=== PATIENT | male | born 1980 | race Caucasian/White ===

== ENCOUNTER 2016-12-26 04:20 | Emergency (ER) | payer BC ==
[2016-12-26 04:26] VITALS: BP 131/73; BMI 32.1
--- NOTE | 2016-12-26 04:33 | DR.ABDMALE ---
HPI - Time seen Time seen: 04:30 - PCP Primary Care Physician: AVIVA - Complaint Chief Complaint Doctors Comments: Patient denies trauma. Denies history of kidney stones Chief Complaint:: LOWER ABD PAIN SINCE ABOUT 0200. Self Treatment fo Chief Complaint: PEPTO BISMOL - Mode of arrival Mode of Arrival: EMS - Timing Onset of Chief Complaint: 12/26/16 PMH - PMH Past Medical History: Yes Past Medical History: Kidney Stones Past Surgical History: No - Family History History of Family Medical Conditions: No - Social History Does patient currently use any type of tobacco product: No Have you used tobacco products in the last 12 months: No Type of Tobacco Use: None Alcohol Use: None Do you use any recreational Drugs:: No Lives With: Spouse Lives Where: Home - infectious screening Have you traveled outside the country in the last 6 months?: No Isolation: Standard ROS - Review of Systems Eyes: No Symptoms Reported ENTM: No Symptoms Reported Respiratoy: No Symptoms Reported Cardiovascular: No Symptoms Reported Gastrointestinal/Abdominal: Abdominal Pain Genitourinary: No Symptoms Reported Neurological: No Symptoms Reported Musculoskeletal: No Symptoms Reported Integumentary: No Symptoms Reported Hematologic/Lymphatic: No Symptoms Reported Endocrine: No Symptoms Reported Psychiatric: No Symptoms Reported All Other Systems: Reviewed and Negative PE - Vital Signs Vital Signs: Temp Pulse Resp BP Pulse Ox 12/26/16 04:21 97.9 F 84 18 131/73 100 - General General Appearance: Alert, In No Apparent Distress - Head Head Exam: Normal Inspection, Atraumatic - Eyes Eye exam: Normal Appearance, PERRL, EOMI - ENT ENT Exam: Normal Exam - Neck Neck Exam: Normal Inspection, Full ROM - Chest Chest Inspection: Normal Inspection, Symmetric Chest Wall Rise - Respiratory Respiratory Exam: Normal Lung Sounds Bilat Respiratory Exam: Bilateral Clear to Auscultation - Cardiovascular Cardiovascular Exam: Regular Rate, Normal Rhythm - Abdominal Exam Abdominal Exam: Normal Inspection, Normal Bowel Sounds Abdominal Tenderness: RLQ, Suprapubic - Rectal Rectal Exam: Deferred - Back Back Exam: Normal Inspection - Extremeties Extremities Exam: Normal Inspection, Full ROM - Exam: Male: Deferred - Neurologic Neurological Exam: Alert, Oriented X3, CN II-XII Intact - Psychiatric Psychiatric Exam: Anxious - Skin Skin Exam: Warm, Dry, Intact ROR - Labs Reviewed Result Diagrams: 12/26/16 04:45 12/26/16 04:45 Laboratory: WBC 7.0 X10^3/uL (3.6-10.0) 12/26/16 04:45 RBC 4.97 X10^6/uL (4.7-6.0) 12/26/16 04:45 Hgb 14.9 g/dL (13.5-18.0) 12/26/16 04:45 Hct 43.6 % (42.0-54.0) 12/26/16 04:45 MCV 87.7 fL (80.0-100.0) 12/26/16 04:45 MCH 30.0 pg (27.0-34.0) 12/26/16 04:45 MCHC 34.2 g/dL (33.0-35.0) 12/26/16 04:45 RDW 14.0 % (11.6-16.5) 12/26/16 04:45 Plt Count 156 X10^3/uL (150.0-450.0) 12/26/16 04:45 MPV 8.4 fL (7.4-11.0) 12/26/16 04:45 Neut % 84.5 % (42.0-75.0) H 12/26/16 04:45 Lymph % 9.2 % (21.0-51.0) L 12/26/16 04:45 [place] % 5.4 % (0.0-13.0) 12/26/16 04:45 Eos % 0.3 % (0.9-2.9) L 12/26/16 04:45 Baso % 0.6 % (0.2-1.0) 12/26/16 04:45 Neut # 5.9 x10^3/uL (2.2-4.8) H 12/26/16 04:45 Lymph # 0.6 X10^3/uL (1.3-2.9) L 12/26/16 04:45 [place] # 0.4 x10^3/uL (0.3-0.8) 12/26/16 04:45 Eos # 0.0 x10^3/uL (0.0-0.2) 12/26/16 04:45 Baso # 0.0 X10^3/uL (0.0-0.1) 12/26/16 04:45 Absolute Nucleated RBC 0.0 /100WBC 12/26/16 04:45 Sodium 140 mmol/L (136-145) 12/26/16 04:45 Corrected Sodium 141 mmol/L (136-145) 12/26/16 04:45 Potassium 3.9 mmol/L (3.5-5.1) 12/26/16 04:45 Chloride 105 mmol/L (98-107) 12/26/16 04:45 Carbon Dioxide 25.4 mmol/L (21-32) 12/26/16 04:45 BUN 19 mg/dL (7-18) H 12/26/16 04:45 Creatinine 1.63 mg/dL (0.70-1.30) H 12/26/16 04:45 Est GFR (MDRD) Af Amer > 60 (>60) 12/26/16 04:45 Est GFR (MDRD) Non-Af 51 (>60) L 12/26/16 04:45 Glucose 143 mg/dL (65-99) H 12/26/16 04:45 Calcium 9.0 mg/dL (8.5-10.1) 12/26/16 04:45 C-Reactive Protein 1.90 mg/L (0-3.0) 12/26/16 04:45 Specimen Type Clean catch urine 12/26/16 04:45 Urine Color Yellow (YELLOW) 12/26/16 04:45 Urine Appearance Clear (CLEAR) 12/26/16 04:45 Urine pH 5.0 (5.0 - 8.0) 12/26/16 04:45 Ur Specific War 1.025 (1.000-1.030) 12/26/16 04:45 Urine Protein 1+ (NEGATIVE) 12/26/16 04:45 Urine Glucose (UA) 1+ (NEGATIVE) 12/26/16 04:45 Urine Ketones 2+ (NEGATIVE) 12/26/16 04:45 Urine Occult Blood 5+ (NEGATIVE) 12/26/16 04:45 Urine Nitrite Negative (NEGATIVE) 12/26/16 04:45 Urine Bilirubin Negative (NEGATIVE) 12/26/16 04:45 Urine Urobilinogen Normal (NORMAL) 12/26/16 04:45 Ur Leukocyte Esterase Negative (NEGATIVE) 12/26/16 04:45 Urine RBC 20-25 /HPF (NEGATIVE) 12/26/16 04:45 Urine WBC 0-3 /HPF (NEGATIVE) 12/26/16 04:45 Ur Squamous Epith Cells Rare /HPF (NEGATIVE) 12/26/16 04:45 Ur Renal Epithelial Cell Few /HPF (NEGATIVE) 12/26/16 04:45 Urine Bacteria 1+ /HPF (NEGATIVE) 12/26/16 04:45 Ur Culture Indicated? No/not indicated 12/26/16 04:45 - XRAY XRAY Interpreted by: Radiologist (CT Abd/Pelv w/o: There bilateral nonobstructing renal calculi. In the pelvis to the right of midline there iws a lmm stone which lies along the path of the distal right ureter. There is mild right hydronephrosis and hydroureter. There is no evidence of biliary ductal dilatation....Impression: There is mild right hydronephrosis and hydroureter. These changes may be secondary to a recently passed stone. A 1mm stone identified in the right hemipelvis does not appear to lie within the ureter.) - Diagnosis Discharge Problem: Hydroureter Hydronephrosis Qualifiers: Hydronephrosis type: unspecified Qualified Code(s): N13.30 - Unspecified hydronephrosis - Discharge Plan Condition: Stable - Follow ups/Referrals Follow ups/Referrals: NFD,None [Primary Care Provider] - 3 days - Instructions
[2016-12-26] MEDS ORDERED: MORPHINE SULFATE INJ 4 MG IVP ONE (04:35)
[2016-12-26] MEDS ORDERED: NS 1000 ML 1,000 ML ONE (04:42)
[2016-12-26] MEDS ORDERED: MORPHINE SULFATE INJ 4 MG ONE (04:43)
[2016-12-26 04:59] LABS: BASOPHILS % (AUTO) 0.6 % (0.2-1.0); BILIRUBIN,URINE NEGATIVE (NEGATIVE); BLOOD/HEMOGLOBIN,URINE 5+ (NEGATIVE); EOSINOPHILS % (AUTO) 0.3 % (0.9-2.9); GLUCOSE, URINE 1+ (NEGATIVE); HEMATOCRIT 43.6 % (42.0-54.0); HEMOGLOBIN 14.9 g/dL (13.5-18.0); KETONES,URINE 2+ (NEGATIVE); LEUKOCYTE ESTERASE ,URINE NEGATIVE (NEGATIVE); LYMPHOCYTES # (AUTO) 0.6 X10^3/uL (1.3-2.9); LYMPHOCYTES % (AUTO) 9.2 % (21.0-51.0); MEAN CORPUSCULAR HGB CONC 34.2 g/dL (33.0-35.0); MEAN CORPUSCULAR VOLUME 87.7 fL (80.0-100.0); MEAN PLATELET VOLUME 8.4 fL (7.4-11.0); MONOCYTES # (AUTO) 0.4 x10^3/uL (0.3-0.8); MONOCYTES % (AUTO) 5.4 % (0.0-13.0); NEUTROPHILS # (AUTO) 5.9 x10^3/uL (2.2-4.8); NEUTROPHILS % (AUTO) 84.5 % (42.0-75.0); NITRITES,URINE NEGATIVE (NEGATIVE); PLATELET COUNT 156 X10^3/uL (150.0-450.0); PROTEIN,URINE 1+ (NEGATIVE); RED BLOOD COUNT 4.97 X10^6/uL (4.7-6.0); UROBILINOGEN,URINE NORMAL (NORMAL)
[2016-12-26] MEDS ORDERED: NS 1000 ML 1,000 ML IV SCH (05:00)
[2016-12-26 05:02] LABS: BLOOD UREA NITROGEN 19 mg/dL (7-18); CARBON DIOXIDE 25.4 mmol/L (21-32); CHLORIDE 105 mmol/L (98-107); COR NA(FOR HYPERGLY) 141 mmol/L (136-145); CREATININE 1.63 mg/dL (0.70-1.30); SODIUM 140 mmol/L (136-145); eGFR BLACK RACES > 60 (>60); eGFR NON BLACK RACES 51 (>60)
[2016-12-26 05:06] LABS: APPEARANCE,URINE CLEAR (CLEAR); COLOR,URINE YELLOW (YELLOW); RBC,URINE 20-25 /HPF (NEGATIVE)
[2016-12-26 05:07] LABS: BACTERIA,URINE 1+ /HPF (NEGATIVE); RENAL EPITHELIAL CELLS,URINE FEW /HPF (NEGATIVE); SQUAMOUS EPITHELIAL CELL,UR RARE /HPF (NEGATIVE)
[2016-12-26] MEDS ORDERED: TORADOL 30 MG VIAL IVP ONE (05:14)
[2016-12-26] MEDS ORDERED: TORADOL 30 MG VIAL ONE (05:15)
--- NOTE | 2016-12-26 06:03 | CT ---
EXAM: CT ABDOMEN AND PELVIS WITHOUT CONTRAST INDICATION: Low pelvic pain COMPARISION: No priors available for comparison TECHNIQUE: Axial CT examination of the abdomen and pelvis was performed without intravenous contrast. Coronal an d sagittal reconstructions were created using the axial data. FINDINGS: The lung bases are clear. The liver, spleen, pancreas, adrenal glands, and gallbladder are normal. Th ere are bilateral nonobstructing renal calculi. In the pelvis to the right of midline there is a 1 mm stone which lies along the path of the distal right ureter. There is mild right hydronephrosis and h ydroureter. There is no evidence of biliary ductal dilatation. The aorta and inferior vena cava are normal in marion iber. The bowel loops are nonobstructed. No abnormal mass, lymphadenopathy, or fluid collection. Urinary bladder is normal. The appendix is normal. The regional skeleton is intact. IMPRESSION: There is mild right hydronephrosis and hydroureter. These changes may be secondary to a recently pass ed stone. A 1 mm stone identified in the right hemipelvis does not appear to lie within the ureter. Reported By:
[2016-12-26] MEDS ORDERED: DILAUDID INJ IM ONE (06:18)
[2016-12-26] MEDS ORDERED: DILAUDID INJ ONE (06:19)
[2016-12-26] MEDS ORDERED: DILAUDID INJ IVP ONE (06:19)
== END 2016-12-26 07:22 | disposition home or self-care (01) ==
LOC: ER 04:20
DX: N13.4 Hydroureter (principal); N13.30 Unspecified hydronephrosis; R10.31 Right lower quadrant pain
CPT/HCPCS: 36415; 74176; 80048; 81001; 85025; 86140; 96365; 96367; 96374; 96375; 99283; J1885; J2270

== ENCOUNTER 2021-04-30 19:18 | Observation (INO) ==
[2021-04-30 20:12] LABS: BASOPHILS % (AUTO) 0.4 % (0.2-1.0); EOSINOPHILS % (AUTO) 0.1 % (0.9-2.9); HEMATOCRIT 41.4 % (42.0-54.0); HEMOGLOBIN 14.3 g/dL (13.5-18.0); LYMPHOCYTES # (AUTO) 0.6 X10^3/uL (1.3-2.9); LYMPHOCYTES % (AUTO) 7.7 % (21.0-51.0); MEAN CORPUSCULAR HEMOGLOBIN 30.1 pg (27.0-34.0); MEAN CORPUSCULAR HGB CONC 34.6 g/dL (33.0-35.0); MEAN PLATELET VOLUME 7.7 fL (7.4-11.0); MONOCYTES # (AUTO) 0.5 x10^3/uL (0.3-0.8); MONOCYTES % (AUTO) 7.1 % (0.0-13.0); NEUTROPHILS # (AUTO) 6.2 x10^3/uL (2.2-4.8); NEUTROPHILS % (AUTO) 84.7 % (42.0-75.0); RED BLOOD COUNT 4.75 X10^6/uL (4.7-6.0); RED CELL DISTRIBUTION WIDTH 13.7 % (11.6-16.5); WHITE BLOOD COUNT 7.3 X10^3/uL (3.6-10.0)
[2021-04-30 20:13] LABS: BLOOD UREA NITROGEN 17 mg/dL (7-18); CALCIUM 9.3 mg/dL (8.5-10.1); CHLORIDE 103 mmol/L (98-107); COR NA(FOR HYPERGLY) 140 mmol/L (136-145); CREATININE 1.35 mg/dL (0.70-1.30); SODIUM 139 mmol/L (136-145); eGFR NON BLACK RACES > 60 (>60)
--- NOTE | 2021-04-30 20:23 | DR.CP ---
HPI Time Seen Time Seen by Provider: 04/30/21 19:35 PCP Primary Care Physician: LUCIANA CHICAS HPI Comment HPI Comment: A 41 y/o male presenting via EMS with c/o chest pain in the chest since about 1400 hrs. today. He thought It was indigestion as he just done lunch. No relief was offered by maalox. He can't adequately characterize the pain. There was was no radiation, dyspnea or diaphoresi. He howeverhad nausea. The pain intensitfied during anabaptist service this evening. He had a similar experience 1 year ago and had a negative stress test with Dr. Mahmood ([place]). He had received 4 tabs. of 81 mg ASA, 4 mg of Zofran and 5 mg of MSO4 administered by the EMS on the scene. At its peak, he rated the pain as an 8/10 in intensity. Now it is a 2/10. This pain presented 1 week ago but dissipitated shortly. Complaint Chief Complaint:: PT IN ED VIA STRETCHER PER [facility] WITH C/O CHEST P AIN SINCE ABOUT 3PM. PT STATES ITS MIDSTERNAL RADIATING TO THE LEFT. PT GIVEN ASPIRIN 81MG X 4, ZOFRAN 4MG IV AND MORPHINE 5MG IV PER EMS. Self Treatment fo Chief Complaint: MAALOX COVID-19 Coronavirus risk:travel/contact w/high risk person: No Has patient experienced Coronavirus symptoms: No Reviewed Nurses Notes Review: Yes Source History Provided: Patient Mode of Arrival Mode of Arrival: Stretcher Timing Onset of Chief Complaint: 04/30/21 Came on: Gradually Duration Duration: Constant How lon Duration: Hours Location Location of Chest Pain: Chest Chest Pain Radiation Location: None Context Onset: At rest Cardiac Risk Factors: None PE Risk Factors: None History of: Similar pain in the past Prehospital Care: IV, SL Nitro, ASA and Other (Morrphine) Quality Quality: Other (unable to describe) Severity Severity: Extreme Modifying Factors Worsens: Nothing Associated Signs and Symptoms Associated Signs and Symptoms: Nausea/Vomiting PMH PMH Past Medical History: Yes Past Medical History: Kidney Stones Past Surgical History: No Surgical History: No History Family History History of Family Medical Conditions: Yes Family Medical History: Cancer Social History Does patient currently use any type of tobacco product: No Have you used tobacco products in the last 12 months: No Type of Tobacco Use: None Does any household member use tobacco: No Alcohol Use: None Do you use any recreational Drugs:: No Lives With: Spouse Lives Where: Home Travel Risk Coronavirus risk:travel/contact w/high risk person: No Has patient experienced Coronavirus symptoms: No Infectious screening In the last 2 months have you had wt loss of >10#?: NO Have you had fever, night sweats or hemotysis?: No Have you traveled outside the country in the last 6 months?: No Isolation: Standard ROS Review of Systems Constitutional: No Symptoms Reported Eyes: No Symptoms Reported ENTM: No Symptoms Reported Respiratoy: No Symptoms Reported Cardiovascular: Chest Pain Gastrointestinal/Abdominal: Nausea Genitourinary: No Symptoms Reported Neurological: No Symptoms Reported Musculoskeletal: No Symptoms Reported Integumentary: No Symptoms Reported Hematologic/Lymphatic: No Symptoms Reported Endocrine: No Symptoms Reported Psychiatric: No Symptoms Reported PE Vitals Vitals: Temperature 98.4 F Pulse Rate 99 Respiratory Rate 17 Blood Pressure [Left Arm] 134/84 Blood Pressure 110/56 O2 Sat by Pulse Oximetry 95 General Limitations: No Limitations General Appearance: Alert and In No Apparent Distress Head Head Exam: Normal Inspection, Atraumatic and Normocephalic Eyes Eye exam: Normal Appearance and EOMI ENT ENT Exam: Normal Exam, Normal Oropharynx, Normal External Ear Exam and Mucous Membranes Moist Chest Chest Inspection: Normal Inspection and Symmetric Chest Wall Rise Respiratory Respiratory Exam: Normal Lung Sounds Bilat Cardiovascular Cardiovascular Exam: Regular Rate, Normal Rhythm, Normal Heart Sounds, +S1 and +S2 Abdominal Exam Abdominal Exam: Normal Inspection, Normal Bowel Sounds and Soft Extremities Extremities Exam: Normal Inspection and Full ROM Back Back Exam: Normal Inspection and Full ROM Neurologic Neurological Exam: Alert and Oriented X3 Psychiatric Psychiatric Exam: Normal Affect and Normal Mood Skin Skin Exam: Intact COURSE Reevaluation 1st: Improved 2nd: Resolved Consultation Consultation Comments: I spoke with on-call provider (Dr. Sandhu) about this pt's. presentation and diagnostic findings. Dr. Sandhu agreed to have the pt. admitted in-house Education/Counseling Education/Counseling: Patient, Education and Counseling Educated On: Treatment, Diagnosis, Prognosis and Needs for Follow Up ROR Labs Reviewed Result Diagrams: 04/30/21 19:49 04/30/21 19:49 Laboratory: WBC 7.3 X10^3/uL (3.6-10.0) 04/30/21 19:49 RBC 4.75 X10^6/uL (4.7-6.0) 04/30/21 19:49 Hgb 14.3 g/dL (13.5-18.0) 04/30/21 19:49 Hct 41.4 % (42.0-54.0) L 04/30/21 19:49 MCV 87.0 fL (80.0-100.0) 04/30/21 19:49 MCH 30.1 pg (27.0-34.0) 04/30/21 19:49 MCHC 34.6 g/dL (33.0-35.0) 04/30/21 19:49 RDW 13.7 % (11.6-16.5) 04/30/21 19:49 Plt Count 177 X10^3/uL (150.0-450.0) 04/30/21 19:49 MPV 7.7 fL (7.4-11.0) 04/30/21 19:49 Neut % (Auto) 84.7 % (42.0-75.0) H 04/30/21 19:49 Lymph % (Auto) 7.7 % (21.0-51.0) L 04/30/21 19:49 [place] % (Auto) 7.1 % (0.0-13.0) 04/30/21 19:49 Eos % (Auto) 0.1 % (0.9-2.9) L 04/30/21 19:49 Baso % (Auto) 0.4 % (0.2-1.0) 04/30/21 19:49 Neut # (Auto) 6.2 x10^3/uL (2.2-4.8) H 04/30/21 19:49 Lymph # (Auto) 0.6 X10^3/uL (1.3-2.9) L 04/30/21 19:49 [place] # (Auto) 0.5 x10^3/uL (0.3-0.8) 04/30/21 19:49 Eos # (Auto) 0.0 x10^3/uL (0.0-0.2) 04/30/21 19:49 Baso # (Auto) 0.0 X10^3/uL (0.0-0.1) 04/30/21 19:49 Absolute Nucleated RBC 0.8 /100WBC 04/30/21 19:49 PT 12.1 SECONDS (11.8-14.3) 04/30/21 19:49 INR Target Range - 04/30/21 19:49 INR 0.94 (0.8-1.3) 04/30/21 19:49 APTT 25.6 SECONDS (22.9-36.5) 04/30/21 19:49 PTT Comment - 04/30/21 19:49 D-Dimer 0.29 ug/ml (0.0-0.57) 04/30/21 19:49 Sodium 139 mmol/L (136-145) 04/30/21 19:49 Corrected Sodium 140 mmol/L (136-145) 04/30/21 19:49 Potassium 4.0 mmol/L (3.5-5.1) 04/30/21 19:49 Chloride 103 mmol/L (98-107) 04/30/21 19:49 Carbon Dioxide 30.0 mmol/L (21-32) 04/30/21 19:49 BUN 17 mg/dL (7-18) 04/30/21 19:49 Creatinine 1.35 mg/dL (0.70-1.30) H 04/30/21 19:49 Est GFR (MDRD) Af Amer > 60 (>60) 04/30/21 19:49 Est GFR (MDRD) Non-Af > 60 (>60) 04/30/21 19:49 Glucose 153 mg/dL (65-99) H 04/30/21 19:49 Calcium 9.3 mg/dL (8.5-10.1) 04/30/21 19:49 Corrected Calcium TNP 04/30/21 19:49 Total Bilirubin 0.70 mg/dL (0.2-1.0) 04/30/21 19:49 AST 140 Units/L (15-37) H 04/30/21 19:49 ALT 112 Units/L (12-78) H 04/30/21 19:49 Alkaline Phosphatase 104 Units/L (46-116) 04/30/21 19:49 Creatine Kinase 99 Units/L (39-308) 04/30/21 19:49 CK-MB (CK-2) < 1.0 ng/mL (0-4.0) 04/30/21 19:49 CK/CKMB % Calc 1.0 % (<4) 04/30/21 19:49 Troponin I High Sens 5.0 ng/L (4.0-60.0) 04/30/21 19:49 Total Protein 6.7 g/dL (6.4-8.2) 04/30/21 19:49 Albumin 3.4 g/dL (3.4-5.0) 04/30/21 19:49 Globulin 3.3 g/dL (2.5-4.5) 04/30/21 19:49 Albumin/Globulin Ratio 1.0 Ratio (1.1-2.1) L 04/30/21 19:49 SARS CoV-2 RNA Rapid RAIMUNDO Negative (NEGATIVE) 04/30/21 20:07 EKG Rate: 119 [place]: Normal Rhythm: ST Block: None Hypertrophy: None ST: Inf and Infarct (<= 1mm ST elevation. ) Opioid Opioid Risk Tool Age (Ketan box if 16-45): Yes History of Preadolescent Sexual Abuse: No Total: 1 Total Score Risk Category: Low Risk Copyright: [facility] predicting aberrant behaviors Diagnosis Discharge Problem: Chest pain Qualifiers: Chest pain type: unspecified Qualified Code(s): R07.9 - Chest pain, unspecified ADDITIONAL NOTES Additional Notes Additional Notes: Name: KRISTEN MCKEON CAcct#: [id number]: [id number] : 1980Sex: MLocation: ER Order Number(s): [id number](s):CHEST, 1 VIEW Ordering Physician: ALEXUS CARRANZA Primary Care: Saige Peguero Service Date: 04/30/21 Service Time: 1934 HISTORY Chest pain STUDY CHEST, 1 VIEW COMPARISON None available TECHNIQUE Chest radiographic imaging, AP portable projection, 1 image FINDINGS No cardiomegaly. No focal airspace disease. No pleural effusion. No pneumothorax. No acute osseous abnormality. IMPRESSION No imaging findings of acute cardiopulmonary disease. Electronically signed by: Manpreet Crane (Apr 30, 2021 21:23:12) Report Electronically signed: 04/30/216 CC: Alexus Carranza
[2021-04-30 20:44] LABS: ALANINE AMINOTRANSFERASE 112 Units/L (12-78); ALBUMIN 3.4 g/dL (3.4-5.0); ALKALINE PHOSPHATASE 104 Units/L (46-116); ASPARTATE AMINO TRANSFERASE 140 Units/L (15-37); CREATINE KINASE 99 Units/L (39-308); CREATINE KINASE MB < 1.0 ng/mL (0-4.0); TOTAL PROTEIN 6.7 g/dL (6.4-8.2)
--- NOTE | 2021-04-30 21:24 | RAD ---
HISTORYChest painSTUDYCHEST, 1 VIEWCOMPARISONNone availableTECHNIQUEChest radiographic imaging, AP portable projection, 1 imageFINDINGSNo cardiomegaly.No focal airspace disease.No pleural effusion.No pneumothorax.No acute osseous abnormality.IMPRESSIONNo imaging findings of acute cardiopulmonary disease.Electronically signed by: Manpreet Crane (Apr 30, 2021 21:23:12)
[2021-04-30] MEDS ORDERED: MORPHINE SULFATE INJ 2 MG INJ IVP PRN (22:41)
[2021-04-30] MEDS ORDERED: NITROSTAT SL PRN (22:41)
[2021-04-30 23:28] VITALS: BMI 32.0
[2021-04-30 23:34] LABS: CREATINE KINASE 98 Units/L (39-308); CREATINE KINASE MB < 1.0 ng/mL (0-4.0)
[2021-05-01 05:37] LABS: CHOLESTEROL 206 mg/dL (0-200); CKMB % 1.2 % (<4); CREATINE KINASE 82 Units/L (39-308); CREATINE KINASE MB < 1.0 ng/mL (0-4.0); HDL CHOLESTEROL 51 mg/dL (40-60); TRIGLYCERIDES 152 mg/dL (0-150)
[2021-05-01] MEDS ORDERED: PEPCID TAB 20 MG PO SCH (09:00)
[2021-05-01 11:44] LABS: CKMB % 1.3 % (<4); CREATINE KINASE 78 Units/L (39-308); CREATINE KINASE MB < 1.0 ng/mL (0-4.0)
[2021-05-01 12:08] VITALS: BP 115/73
[2021-05-03 09:24] LABS: HEPATITIS B SURFACE ANTIGEN Negative (Negative)
--- NOTE | 2021-05-30 14:11 | DR.H&P ---
H&P History & Physical for Day of: H&P Date: 04/30/21 Chief Complaint Chief Complaint: Chest pain Allergies Allergies Allergy/AdvReac Type Severity Reaction Status Date / Time No Known Drug Allergies Allergy Verified 02/21/19 17:54 History of Present Illness History of Present Illness: This is an 41 year-old white male who presented to [facility] ED for chest pain. He has no previous history of CAD. He started having chest pain about 1400 today where he thought it was just indigestion from lunch. He tried Maalox with no relief of his symptoms. He denies radiation of pain, dyspnea and diaphoresis. He reports nausea at this time with now relief from Maalox. He does report an incident 1 year ago of CP where later Dr. Mahmood, Cardiology did a stress test which was negative. It is noted his LFT's are elevated here in the ED as well and a hepatitis profile has been ordered. Past Medical History Past Medical History: Kidney Stones Past Surgical History Surgical History: No History Family History Family Medical History: Cancer Social History Does patient currently use any type of tobacco product: No Have you used tobacco products in the last 12 months: No Type of Tobacco Use: None Does any household member use tobacco: No Alcohol Use: None Drug Use: None Medications Home Medications: No Known Drug Allergies Allergy (Verified 02/21/19 17:54) Labs Result Diagrams: 04/30/21 19:49 04/30/21 19:49 Labs: Laboratory WBC 7.3 X10^3/uL (3.6-10.0) 04/30/21 19:49 RBC 4.75 X10^6/uL (4.7-6.0) 04/30/21 19:49 Hgb 14.3 g/dL (13.5-18.0) 04/30/21 19:49 Hct 41.4 % (42.0-54.0) L 04/30/21 19:49 MCV 87.0 fL (80.0-100.0) 04/30/21 19:49 MCH 30.1 pg (27.0-34.0) 04/30/21 19:49 MCHC 34.6 g/dL (33.0-35.0) 04/30/21 19:49 RDW 13.7 % (11.6-16.5) 04/30/21 19:49 Plt Count 177 X10^3/uL (150.0-450.0) 04/30/21 19:49 MPV 7.7 fL (7.4-11.0) 04/30/21 19:49 Neut % (Auto) 84.7 % (42.0-75.0) H 04/30/21 19:49 Lymph % (Auto) 7.7 % (21.0-51.0) L 04/30/21 19:49 [place] % (Auto) 7.1 % (0.0-13.0) 04/30/21 19:49 Eos % (Auto) 0.1 % (0.9-2.9) L 04/30/21 19:49 Baso % (Auto) 0.4 % (0.2-1.0) 04/30/21 19:49 Neut # (Auto) 6.2 x10^3/uL (2.2-4.8) H 04/30/21 19:49 Lymph # (Auto) 0.6 X10^3/uL (1.3-2.9) L 04/30/21 19:49 Power # (Auto) 0.5 x10^3/uL (0.3-0.8) 04/30/21 19:49 Eos # (Auto) 0.0 x10^3/uL (0.0-0.2) 04/30/21 19:49 Baso # (Auto) 0.0 X10^3/uL (0.0-0.1) 04/30/21 19:49 Absolute Nucleated RBC 0.8 /100WBC 04/30/21 19:49 PT 12.1 SECONDS (11.8-14.3) 04/30/21 19:49 INR Target Range - 04/30/21 19:49 INR 0.94 (0.8-1.3) 04/30/21 19:49 APTT 25.6 SECONDS (22.9-36.5) 04/30/21 19:49 PTT Comment - 04/30/21 19:49 D-Dimer 0.29 ug/ml (0.0-0.57) 04/30/21 19:49 Sodium 139 mmol/L (136-145) 04/30/21 19:49 Corrected Sodium 140 mmol/L (136-145) 04/30/21 19:49 Potassium 4.0 mmol/L (3.5-5.1) 04/30/21 19:49 Chloride 103 mmol/L (98-107) 04/30/21 19:49 Carbon Dioxide 30.0 mmol/L (21-32) 04/30/21 19:49 BUN 17 mg/dL (7-18) 04/30/21 19:49 Creatinine 1.35 mg/dL (0.70-1.30) H 04/30/21 19:49 Est GFR (MDRD) Af Amer > 60 (>60) 04/30/21 19:49 Est GFR (MDRD) Non-Af > 60 (>60) 04/30/21 19:49 Glucose 153 mg/dL (65-99) H 04/30/21 19:49 Calcium 9.3 mg/dL (8.5-10.1) 04/30/21 19:49 Corrected Calcium TNP 04/30/21 19:49 Total Bilirubin 0.70 mg/dL (0.2-1.0) 04/30/21 19:49 AST 140 Units/L (15-37) H 04/30/21 19:49 ALT 112 Units/L (12-78) H 04/30/21 19:49 Alkaline Phosphatase 104 Units/L (46-116) 04/30/21 19:49 Creatine Kinase 78 Units/L (39-308) 05/01/21 10:53 CK-MB (CK-2) < 1.0 ng/mL (0-4.0) 05/01/21 10:53 CK/CKMB % Calc 1.3 % (<4) 05/01/21 10:53 Troponin I High Sens < 4.0 ng/L (4.0-60.0) L 05/01/21 10:53 Total Protein 6.7 g/dL (6.4-8.2) 04/30/21 19:49 Albumin 3.4 g/dL (3.4-5.0) 04/30/21 19:49 Globulin 3.3 g/dL (2.5-4.5) 04/30/21 19:49 Albumin/Globulin Ratio 1.0 Ratio (1.1-2.1) L 04/30/21 19:49 Ldmpq-3-[id number] 122 mg/dL (90-200) 05/01/21 10:53 Triglycerides 152 mg/dL (0-150) H 05/01/21 04:45 Cholesterol 206 mg/dL (0-200) H 05/01/21 04:45 LDL Cholesterol, Calc 125 mg/dL (0-100) H 05/01/21 04:45 HDL Cholesterol 51 mg/dL (40-60) 05/01/21 04:45 Cholesterol/HDL Ratio 4.0 (0.0-5.0) 05/01/21 04:45 Hepatitis A IgM Ab Negative (Negative) 04/30/21 19:49 Hep Bs Antigen Negative (Negative) 04/30/21 19:49 Hep Bs Ag Confirmation TNP 04/30/21 19:49 Hep B Core IgM Ab Negative (Negative) 04/30/21 19:49 Hepatitis C Ab Index <0.02 IV 04/30/21 19:49 Hepatitis C Interp Negative (Negative) 04/30/21 19:49 Hepatitis Interpret See note 04/30/21 19:49 SARS CoV-2 RNA Rapid RAIMUNDO Negative (NEGATIVE) 04/30/21 20:07 Review of Systems Constitutional: No Symptoms Reported Eyes: No Symptoms Reported ENT: No Symptoms Reported Respiratory: No Symptoms Reported Cardiovascular: Chest Pain Gastrointestinal: Nausea Genitourinary: No Symptoms Reported Musculoskeletal: No Symptoms Reported Skin: No Symptoms Reported Neurological: No Symptoms Reported Physical Exam Vital Signs: Temperature 98.2 F Pulse Rate [Apical] 94 Pulse Rate 98 Respiratory Rate 20 Blood Pressure [Right Arm] 115/73 Blood Pressure [Left Arm] 122/67 Blood Pressure 122/67 O2 Sat by Pulse Oximetry 96 Oriented: Normal Eyes: Normal Ear: Normal Nose: Normal Throat: Normal Respiratory: Clear Throughout Cardiovascular: Normal : Normal Auscultation: Bowel Sounds: Normal Palpation: Normal Tenderness: Normal Skin: Normal Musculoskeletal: Normal Psychiatric: Normal Mood Description: Calm, Happy and Appropriate Affect: Normal Speech Pattern: Clear and Appropriate Assessment/Plan (1) Chest pain: Qualifiers: Chest pain type: unspecified Qualified Code(s): R07.9 - Chest pain, unspecified Status: Acute Plan: Check serial CE's and EKG's to r/o OK. The patient has received ASA81 mg x 4 tabs, Morphine Sulfate 5 mg and Zofran for nausea. (2) Elevated LFTs: Status: Acute Plan: Follow up with Hepatitis panel. Review H&P Reviewed: Yes Patient was examined?: Yes
--- NOTE | 2021-05-30 14:23 | PCM.DCPLAN ---
DISCHARGE SUMMARY Admission Date Date of Admission: 04/30/21 Discharge Date Discharge Date: 05/01/21 Admission Diagnoses (1) Chest pain: Status: Acute (2) Elevated LFTs: Status: Acute Discharge Diagnoses Discharge Diagnosis: 1. Chest Pain- resolved 2. Abnormal EKG's 3. Elevated LFT's Discharge Medications Discharge Medications: Prescriptions: Hospital Course Vital Signs: Temperature 98.2 F Pulse Rate [Apical] 94 Pulse Rate 98 Respiratory Rate 20 Blood Pressure [Right Arm] 115/73 Blood Pressure [Left Arm] 122/67 Blood Pressure 122/67 O2 Sat by Pulse Oximetry 96 Latest Lab Results: Laboratory Last Values WBC 7.3 X10^3/uL (3.6-10.0) 04/30/21 19:49 RBC 4.75 X10^6/uL (4.7-6.0) 04/30/21 19:49 Hgb 14.3 g/dL (13.5-18.0) 04/30/21 19:49 Hct 41.4 % (42.0-54.0) L 04/30/21 19:49 MCV 87.0 fL (80.0-100.0) 04/30/21 19:49 MCH 30.1 pg (27.0-34.0) 04/30/21 19:49 MCHC 34.6 g/dL (33.0-35.0) 04/30/21 19:49 RDW 13.7 % (11.6-16.5) 04/30/21 19:49 Plt Count 177 X10^3/uL (150.0-450.0) 04/30/21 19:49 MPV 7.7 fL (7.4-11.0) 04/30/21 19:49 Neut % (Auto) 84.7 % (42.0-75.0) H 04/30/21 19:49 Lymph % (Auto) 7.7 % (21.0-51.0) L 04/30/21 19:49 Karnes % (Auto) 7.1 % (0.0-13.0) 04/30/21 19:49 Eos % (Auto) 0.1 % (0.9-2.9) L 04/30/21 19:49 Baso % (Auto) 0.4 % (0.2-1.0) 04/30/21 19:49 Neut # (Auto) 6.2 x10^3/uL (2.2-4.8) H 04/30/21 19:49 Lymph # (Auto) 0.6 X10^3/uL (1.3-2.9) L 04/30/21 19:49 Karnes # (Auto) 0.5 x10^3/uL (0.3-0.8) 04/30/21 19:49 Eos # (Auto) 0.0 x10^3/uL (0.0-0.2) 04/30/21 19:49 Baso # (Auto) 0.0 X10^3/uL (0.0-0.1) 04/30/21 19:49 Absolute Nucleated RBC 0.8 /100WBC 04/30/21 19:49 PT 12.1 SECONDS (11.8-14.3) 04/30/21 19:49 INR Target Range - 04/30/21 19:49 INR 0.94 (0.8-1.3) 04/30/21 19:49 APTT 25.6 SECONDS (22.9-36.5) 04/30/21 19:49 PTT Comment - 04/30/21 19:49 D-Dimer 0.29 ug/ml (0.0-0.57) 04/30/21 19:49 Sodium 139 mmol/L (136-145) 04/30/21 19:49 Corrected Sodium 140 mmol/L (136-145) 04/30/21 19:49 Potassium 4.0 mmol/L (3.5-5.1) 04/30/21 19:49 Chloride 103 mmol/L (98-107) 04/30/21 19:49 Carbon Dioxide 30.0 mmol/L (21-32) 04/30/21 19:49 BUN 17 mg/dL (7-18) 04/30/21 19:49 Creatinine 1.35 mg/dL (0.70-1.30) H 04/30/21 19:49 Est GFR (MDRD) Af Amer > 60 (>60) 04/30/21 19:49 Est GFR (MDRD) Non-Af > 60 (>60) 04/30/21 19:49 Glucose 153 mg/dL (65-99) H 04/30/21 19:49 Calcium 9.3 mg/dL (8.5-10.1) 04/30/21 19:49 Corrected Calcium TNP 04/30/21 19:49 Total Bilirubin 0.70 mg/dL (0.2-1.0) 04/30/21 19:49 AST 140 Units/L (15-37) H 04/30/21 19:49 ALT 112 Units/L (12-78) H 04/30/21 19:49 Alkaline Phosphatase 104 Units/L (46-116) 04/30/21 19:49 Creatine Kinase 78 Units/L (39-308) 05/01/21 10:53 CK-MB (CK-2) < 1.0 ng/mL (0-4.0) 05/01/21 10:53 CK/CKMB % Calc 1.3 % (<4) 05/01/21 10:53 Troponin I High Sens < 4.0 ng/L (4.0-60.0) L 05/01/21 10:53 Total Protein 6.7 g/dL (6.4-8.2) 04/30/21 19:49 Albumin 3.4 g/dL (3.4-5.0) 04/30/21 19:49 Globulin 3.3 g/dL (2.5-4.5) 04/30/21 19:49 Albumin/Globulin Ratio 1.0 Ratio (1.1-2.1) L 04/30/21 19:49 Gpsls-[id number] 122 mg/dL (90-200) 05/01/21 10:53 Triglycerides 152 mg/dL (0-150) H 05/01/21 04:45 Cholesterol 206 mg/dL (0-200) H 05/01/21 04:45 LDL Cholesterol, Calc 125 mg/dL (0-100) H 05/01/21 04:45 HDL Cholesterol 51 mg/dL (40-60) 05/01/21 04:45 Cholesterol/HDL Ratio 4.0 (0.0-5.0) 05/01/21 04:45 Hepatitis A IgM Ab Negative (Negative) 04/30/21 19:49 Hep Bs Antigen Negative (Negative) 04/30/21 19:49 Hep Bs Ag Confirmation TNP 04/30/21 19:49 Hep B Core IgM Ab Negative (Negative) 04/30/21 19:49 Hepatitis C Ab Index <0.02 IV 04/30/21 19:49 Hepatitis C Interp Negative (Negative) 04/30/21 19:49 Hepatitis Interpret See note 04/30/21 19:49 SARS CoV-2 RNA Rapid RAIMUNDO Negative (NEGATIVE) 04/30/21 20:07 Hospital Course: This patient was admitted for chest pain yesterday to r/o CA. His HS Troponin's have all been normal however his EKG's have shown some ST Elevation and depression at times suggesting possible coronary ischemia. Also noted his LFT's were elevated on admission and his Hepatitis panel showed he was negative for Hepatitis A,B and C. He felt much better the following morning with no reports of nausea nor anymore chest pain. He was ready to go home. He was discharged in stable condition and he will be following up with Bety Bartlett. for hospital f/u. Instructions Instructions: Liver Function Tests Nonspecific Chest Pain, Adult, [id number] Aspirin and Your Heart Chest Wall Pain, [id number]-[id number] Forms: Excuse From Work or School Precautions for COVID19 [facility] Social Distancing
== END 2021-05-01 15:00 | disposition home or self-care (01) ==
LOC: SUPCPDRO → ER 19:18 → MED/SURG 19:18
PROVIDERS: ADMIT Family Medicine; ATTEND Family Medicine
DX: Z20.822 Contact with and (suspected) exposure to COVID-19; R07.89 Other chest pain; R00.0 Tachycardia, unspecified